=== PATIENT | male | born 1950 | race Caucasian/White ===

== ENCOUNTER → 2016-12-04 | Outpatient (CLI) | payer MEDICARE, OTHER ==
[~2016-12-04] MED LIST: AMBIEN10 MG PO; ASPIRIN EC81 MG PO; CPAP INH; DYMISTA NASAL S23 GM NOSE; FLOMAX0.4 MG PO; FLORASTOR250 MG PO; GINSENG EXTRAC100 MG PO; MELATIN3 MG PO; NAPROSYN250 MG PO; PRILOSEC20 M1 PO; PRINIVIL OR ZES10 MG PO; SAW PALMETTO C1 EACH PO; THERA-VITE W/ B1 TAB PO; TYLENOL325 MG PO; VITAMIN D1000 UNI1 PO; ZEBETA5 MG PO
== END | disposition disaster alternative care site (69) ==
LOC: GCAR 16:00
DX: R00.2 Palpitations (principal); R42 Dizziness and giddiness

== ENCOUNTER → 2016-12-04 | Outpatient (CLI) | payer MEDICARE, OTHER ==
[2016-12-04 17:43] LABS: ANION GAP 10.3 (10.0-19.0); BLOOD UREA NITROGEN 15 mg/dL (6-24); CALCIUM 8.9 mg/dL (8.5-10.5); CHLORIDE 109 mMol/L (96-110); CO2 25 mMol/L (22-32); CREATININE 0.9 mg/dL (0.6-1.3); ESTIMATED GFR (MDRD EQUATION) > 60; MAGNESIUM 2.5 mg/dL (1.8-2.6); POTASSIUM 4.3 mMol/L (3.7-5.1); SODIUM 140 mMol/L (135-145)
== END | disposition disaster alternative care site (69) ==
LOC: LGSOS 17:10
PROVIDERS: Internal Medicine Interventional Cardiology
DX: R42 Dizziness and giddiness (principal)

== ENCOUNTER → 2016-12-20 | Outpatient (CLI) | payer MEDICARE, OTHER | END | disposition disaster alternative care site (69) | LOC: GRAD 12-11 07:45 → GCAR 12-11 12:00 → GRAD 12-14 07:15 → GCAR 12-14 12:00 → GRAD 07:26 | DX: R00.2 Palpitations (principal) ==

== ENCOUNTER → 2017-01-30 | Outpatient (CLI) | payer MEDICARE, OTHER ==
--- NOTE | ~2017-01-30 | OR ---
PATIENT'S NAME: NESTOR REIS [facility] AGE: 66 Y [address] ROOM: [place] [id number] LOCATION: GRAD ADMIT DATE: 01/30/2017 OR/Procedure Report DISCHARGE DATE: FAMILY PHYSICIAN: FREDY GEIGER MD ATTENDING PHYSICIAN: Jacqueline Lee SURGEON: Jacqueline Lee MD ORTHOPEDIC DENTIST: DATE OF PROCEDURE: 01/30/2017 PROCEDURE PERFORMED: Coronary CT angiography. INDICATION: 1. Atypical chest pain. 2. The patient has claustrophobia to the extent that he could not even get a stress test done. He was prescribed some Valium along with beta blockers to see whether he could tolerate CT coronary angiography and he was able to. DESCRIPTION OF PROCEDURE: Using a 64-slice CT scanner, the coronary CT angiography was performed prior to which using the standardized protocol for coronary calcium scoring, the scan was performed. Using a 3D workstation, coronary artery calcium scoring was first done. 1. Left main 0. 2. LAD 0. 3. Left circumflex 15. 4. RCA 0. 5. Total coronary artery calcium score is 15. Coronary CT angiography was next performed. Iodinated contrast media were utilized. The images were evaluated on a 3D workstation. 1. The left main coronary artery and the right coronary artery both arise from the left coronary sinus and right coronary sinus respectively normally. 2. Left main shows minimal luminal irregularities. 3. LAD is a type 3-vessel and typically there are small to medium size diagonals. 4. Left circumflex vessel gives off a very small 1st obtuse marginal. The 2nd and 3rd obtuse marginal are little bigger than the 1st, and the circumflex system shows minimal luminal irregularities. 5. Dominant right coronary artery has a proximal tortuous course; however, there was only minimal coronary artery disease again noted. The posterolateral branch and PDA are both relatively normal. CONCLUSION: PATIENT'S NAME: NESTOR REIS [facility] AGE: 66 Y [address] ROOM: [place] [address] LOCATION: GRAD ADMIT DATE: 01/30/2017 OR/Procedure Report DISCHARGE DATE: FAMILY PHYSICIAN: FREDY GEIGER MD ATTENDING PHYSICIAN: Jacqeuline Lee 1. Normally arising coronary arteries. 2. Coronary artery calcium score is 15. 3. Mild coronary artery disease. MD EILEEN APPIAH/dayana /[id number] d: 01/31/17 1138 t: 02/11/17 0801, OPERATIVE SUMMARY
== END | disposition disaster alternative care site (69) ==
LOC: GPOC 01-29 16:00 → GOPP 01-29 16:00 → GRAD 12:04 → GOPP 13:00 → GPOC 14:00 → GOPP 16:00 → GRAD 02-04 14:00 → GOPP 02-04 14:00
PROC: B22 Imaging, Heart, Computerized Tomography (CT Scan) (ICD-10-PCS; principal; 2017-01-30)
DX: J44.9 Chronic obstructive pulmonary disease, unspecified (principal); I25.10 Atherosclerotic heart disease of native coronary artery without angina pectoris
CPT/HCPCS: J2001; Q9967